=== PATIENT | female | born 1950 | race Caucasian/White ===

== ENCOUNTER → 2020-07-08 | Day surgery (SDC) | payer MEDICARE, OTHER ==
[~2020-07-08] MED LIST: ARICEPT5 MG PO; ATORVASTATIN CA20 MG PO; AVAPRO150 MG PO; BUSPAR 10MG10 MG PO; CETAPHIL CREAM454 GM TD; CETAPHIL226 GM TP; CIPRO500 MG PO; CLOBETASOL TD; ELIQUIS 5 MG TAB5 MG PO; ELIQUIS5 MG PO; ELOCON45 G1 TP; ESTRACE0.5 MG PO; EXCEDRIN MIGRA1 EACH PO; FEOSOL325 MG PO; HYDROXYZINE HCL25 MG PO; HYGROTON TAB 2525 MG PO; IMITREX100 MG PO; IRBESARTAN150 MG PO; KLONOPIN TAB 00.5 MG PO; KLONOPIN1 MG PO; KLOR-CON M2020 MEQ PO; LEVOTHYROXINE100 MCG PO; LEXAPRO10 MG PO; LIPITOR TAB 2020 MG PO; LOPRESSOR 50 MG50 MG PO; NEURONTIN 300300 MG PO; NEURONTIN300 MG PO; NIFEDIPINE ER30 M1 PO; ONDANSETRON HCL4 MG PO; PERCOCET 7.5-31 EACH PO; PROTONIX 40 MG40 M1 PO; PROTONIX40 MG PO; QUETIAPINE FUMA25 MG PO; RANITIDINE HCL150 MG PO; RANITIDINE PO; SERTRALINE HCL100 MG PO; SINEQUAN CAP 2525 MG PO; SPIRIVA RESPIMAT4 GM INH; SPIRONOLACTONE50 MG PO; SYNTHROID100 MCG PO; TEMOVATE60 GM TP; ULTRAM50 MG PO; VIT D PO; ZANAFLEX4 MG PO; ZOFRAN4 MG PO; ZOFRAN8 MG PO; ZOLOFT100 MG PO
== END | disposition home or self-care (01) ==
LOC: OR 07:10
PROVIDERS: Internal Medicine Gastroenterology
PROC: 0DJ08ZZ Inspection of Upper Intestinal Tract, Via Natural or Artificial Opening Endoscopic (ICD-10-PCS; principal; 2020-07-08 09:15)
DX: K25.7 Chronic gastric ulcer without hemorrhage or perforation (principal); K44.9 Diaphragmatic hernia without obstruction or gangrene; D64.9 Anemia, unspecified; E78.5 Hyperlipidemia, unspecified; I11.0 Hypertensive heart disease with heart failure; I50.9 Heart failure, unspecified; I48.91 Unspecified atrial fibrillation; J44.9 Chronic obstructive pulmonary disease, unspecified; K21.9 Gastro-esophageal reflux disease without esophagitis; M19.90 Unspecified osteoarthritis, unspecified site; G89.29 Other chronic pain; M54.9 Dorsalgia, unspecified; F41.8 Other specified anxiety disorders; E03.9 Hypothyroidism, unspecified; E53.8 Deficiency of other specified B group vitamins; Z79.01 Long term (current) use of anticoagulants; Z79.899 Other long term (current) drug therapy; Z20.828 Contact with and (suspected) exposure to other viral communicable diseases
CPT/HCPCS: J2001; J2704; J7040

== ENCOUNTER → 2020-08-05 | Outpatient (CLI) | payer MEDICARE, OTHER | LOC: LBRF 14:04 | DX: D64.9 Anemia, unspecified (principal) | CPT/HCPCS: 83993 ==

== ENCOUNTER → 2020-09-29 | Outpatient (CLI) | payer MEDICARE, OTHER | LOC: RAD 16:13 | DX: S23.41XA Sprain of ribs, initial encounter (principal); M54.5 Low back pain; X58.XXXA Exposure to other specified factors, initial encounter | CPT/HCPCS: 71046 ==

== ENCOUNTER → 2021-01-01 | Outpatient (CLI) | payer MEDICARE, OTHER | LOC: MRI 12-11 13:00 | DX: R27.0 Ataxia, unspecified (principal); R53.1 Weakness; R29.6 Repeated falls | CPT/HCPCS: 70551 ==

== ENCOUNTER → 2021-01-12 | Outpatient (CLI) | payer MEDICARE, OTHER | LOC: HEART 5 10-29 08:00 | DX: I48.91 Unspecified atrial fibrillation (principal); R00.1 Bradycardia, unspecified; I08.3 Combined rheumatic disorders of mitral, aortic and tricuspid valves; I08.8 Other rheumatic multiple valve diseases | CPT/HCPCS: 78452; 93306; A9502; J2785 ==

== ENCOUNTER → 2021-01-22 | Outpatient (CLI) | payer MEDICARE, OTHER | LOC: MAMO 11-06 11:00 → MRI 11-06 13:00 → MAMO 13:19 | DX: Z12.31 Encounter for screening mammogram for malignant neoplasm of breast (principal) | CPT/HCPCS: 77063; 77067 ==

== ENCOUNTER 2021-04-17 14:41 | Emergency (ER) | payer MEDICARE, OTHER ==
[2021-04-17] MEDS ORDERED: HYDROCODON-ACE1 EAC4 PO (16:47)
== END 2021-04-17 18:20 | disposition home or self-care (01) ==
LOC: ER1 14:41
DX: S27.0XXA Traumatic pneumothorax, initial encounter (principal); S22.42XA Multiple fractures of ribs, left side, initial encounter for closed fracture; I10 Essential (primary) hypertension; W19.XXXA Unspecified fall, initial encounter
CPT/HCPCS: 71101; 72070; 93005; 99285

== ENCOUNTER 2021-04-18 15:36 | Observation (INO) | payer MEDICARE, OTHER ==
[~2021-04-18] VITALS: Ht 167.6 cm; Wt 74.8 kg
[~2021-04-18 15:36] MED LIST changes: +HYDROCODON-ACE1 EAC4 PO
[2021-04-18 16:50] LABS: HEMOGLOBIN 11.6 gm/dl (12.3-15.3); RED BLOOD COUNT 3.62 M/UL (4.00-5.10); WHITE BLOOD COUNT 6.6 K/UL (4.5-11.0)
[2021-04-18 17:33] LABS: BUN/CREATININE RATIO 21 (0-10)
[2021-04-19 07:26] LABS: BUN/CREATININE RATIO 30 (0-10)
== END 2021-04-19 10:34 | disposition home or self-care (01) ==
LOC: ER1 15:36 → MED SURG 4 18:04 → CDU 18:04 → MED SURG 4 20:24
PROVIDERS: Emergency Medicine; Internal Medicine Infectious Disease; ADMIT Internal Medicine
DX: S27.0XXA Traumatic pneumothorax, initial encounter (principal); S22.42XA Multiple fractures of ribs, left side, initial encounter for closed fracture; E87.6 Hypokalemia; G89.4 Chronic pain syndrome; I48.0 Paroxysmal atrial fibrillation; I10 Essential (primary) hypertension; E03.9 Hypothyroidism, unspecified; E78.5 Hyperlipidemia, unspecified; F41.9 Anxiety disorder, unspecified; M19.90 Unspecified osteoarthritis, unspecified site; Z79.01 Long term (current) use of anticoagulants; Z79.899 Other long term (current) drug therapy; W19.XXXA Unspecified fall, initial encounter; Z20.822 Contact with and (suspected) exposure to COVID-19
CPT/HCPCS: 36415; 71045; 71250; 80048; 80053; 85025; 99285; G0378; U0002

== ENCOUNTER → 2021-05-18 | Outpatient (CLI) | payer MEDICARE, OTHER | LOC: RAD 12:41 | DX: J93.9 Pneumothorax, unspecified (principal); J90 Pleural effusion, not elsewhere classified; R91.8 Other nonspecific abnormal finding of lung field | CPT/HCPCS: 71046 ==

== ENCOUNTER 2021-06-01 15:51 | Emergency (ER) | payer MEDICARE, OTHER ==
[2021-06-01] MEDS ORDERED: PERCOCET 5/325 T1 EA PO (18:16)
== END 2021-06-01 19:09 | disposition home or self-care (01) ==
LOC: ER1 15:51
DX: S52.571A Other intraarticular fracture of lower end of right radius, initial encounter for closed fracture (principal); S52.531A Colles' fracture of right radius, initial encounter for closed fracture; I48.91 Unspecified atrial fibrillation; I10 Essential (primary) hypertension; E11.9 Type 2 diabetes mellitus without complications; W19.XXXA Unspecified fall, initial encounter
CPT/HCPCS: 29125; 73060; 73080; 73090; 73110; 73130; 99283

== ENCOUNTER 2021-08-21 17:46 | Emergency (ER) | payer MEDICARE, OTHER ==
[~2021-08-21] VITALS: Ht 167.6 cm; Wt 68.0 kg
[~2021-08-21 17:46] MED LIST changes: -ELIQUIS5 MG PO; -LEVOTHYROXINE100 MCG PO; -NEURONTIN300 MG PO; +PERCOCET 5/325 T1 EA PO; -SERTRALINE HCL100 MG PO; -SPIRONOLACTONE50 MG PO
[2021-08-21 19:08] LABS: BUN/CREATININE RATIO 34 (0-10)
[2021-08-21 20:09] LABS: HEMOGLOBIN 7.1 gm/dl (12.3-15.3); RED BLOOD COUNT 2.31 M/UL (4.00-5.10); WHITE BLOOD COUNT 3.9 K/UL (4.5-11.0)
[2021-08-22] MEDS ORDERED: SPIRONOLACTONE50 MG PO (08:13)
[2021-08-22] MEDS ORDERED: NEURONTIN300 MG PO (08:14)
[2021-08-22] MEDS ORDERED: ELIQUIS5 MG PO (09:26)
[2021-08-22] MEDS ORDERED: SERTRALINE HCL100 MG PO (09:27)
[2021-08-22] MEDS ORDERED: LEVOTHYROXINE100 MCG PO (09:33)
[2021-08-22 09:55] LABS: HEMOGLOBIN 11.3 gm/dl (12.3-15.3)
[2021-08-22] MEDS ORDERED: ONDANSETRON HCL4 MG PO (13:29)
[2021-08-22] MEDS ORDERED: OXYCODON-ACETA1 EAC1 PO (13:31)
[2021-08-22] MEDS ORDERED: TIZANIDINE HCL2 MG PO (13:32)
[2021-08-22] MEDS ORDERED: TRAMADOL HCL50 MG PO (13:33)
[2021-08-22] MEDS ORDERED: ARTHRITIS PAIN50 GM TP (13:34)
[2021-08-22] MEDS ORDERED: QUETIAPINE FUM100 MG PO (13:35)
[2021-08-22] MEDS ORDERED: QUETIAPINE FUMA50 MG PO (13:36)
[2021-08-22] MEDS ORDERED: EFFEXOR 37.537.5 MG PO (13:38)
[2021-08-22] MEDS ORDERED: BACLOFEN10 MG PO (13:39)
[2021-08-22] MEDS ORDERED: PROTONIX 40 MG40 M1 PO (13:40)
[2021-08-22] MEDS ORDERED: ISOSORBIDE MONO30 MG PO (13:40)
[2021-08-22] MEDS ORDERED: RALOXIFENE HCL60 MG PO (13:41)
[2021-08-22] MEDS ORDERED: CRESTOR 10 MG T10 MG PO (13:43)
[2021-08-22] MEDS ORDERED: DOCUSATE SODIU250 MG PO (13:45)
[2021-08-22] MEDS ORDERED: DONEPEZIL HCL5 MG PO (13:46)
[2021-08-22] MEDS ORDERED: B-122500 MCG SL (13:47)
[2021-08-22] MEDS ORDERED: VITAMIN D250 MCG PO (13:50)
[2021-08-22] MEDS ORDERED: EXCEDRIN MIGRA1 EAC1 PO (13:51)
[2021-08-23 04:26] LABS: HEMOGLOBIN 11.3 gm/dl (12.3-15.3)
[2021-08-23 04:29] LABS: RED BLOOD COUNT 3.73 M/UL (4.00-5.10); WHITE BLOOD COUNT 5.6 K/UL (4.5-11.0)
[2021-08-23 04:49] LABS: BUN/CREATININE RATIO 20 (0-10)
== END 2021-08-23 12:58 | disposition home or self-care (01) ==
LOC: ER1 17:46
PROVIDERS: Emergency Medicine; Internal Medicine Infectious Disease; Student in an Organized Health Care Education/Training Program
DX: G93.40 Encephalopathy, unspecified (principal); R57.1 Hypovolemic shock; K92.2 Gastrointestinal hemorrhage, unspecified; D64.9 Anemia, unspecified; I48.91 Unspecified atrial fibrillation; I10 Essential (primary) hypertension; E78.5 Hyperlipidemia, unspecified; E03.9 Hypothyroidism, unspecified; Z88.2 Allergy status to sulfonamides; Z79.01 Long term (current) use of anticoagulants; Z79.899 Other long term (current) drug therapy; R29.718 NIHSS score 18; Z20.822 Contact with and (suspected) exposure to COVID-19
CPT/HCPCS: ECHO; 36600; 70450; 70496; 70498; 71045; 80053; 80307; 81001; 82140; 82550; 82553; 82803; 83605; 83735; 83874; 83880; 84484; 85014; 85018; 85025; 85610; 86850; 86900; 86901; 86920; 87040; 87086; 93005; 93306; 96374; 96376; 99285; C9113; G0480; J7030; J7050; P9016; U0002

== ENCOUNTER → 2021-11-30 | Outpatient (CLI) | payer MEDICARE, OTHER ==
[~2021-11-30] MED LIST changes: +ARTHRITIS PAIN50 GM TP; +B-122500 MCG SL; +BACLOFEN10 MG PO; +CRESTOR 10 MG T10 MG PO; +DOCUSATE SODIU250 MG PO; +DONEPEZIL HCL5 MG PO; +EFFEXOR 37.537.5 MG PO; +ELIQUIS5 MG PO; +EXCEDRIN MIGRA1 EAC1 PO; +ISOSORBIDE MONO30 MG PO; +LEVOTHYROXINE100 MCG PO; +NEURONTIN300 MG PO; +OXYCODON-ACETA1 EAC1 PO; +QUETIAPINE FUM100 MG PO; +QUETIAPINE FUMA50 MG PO; +RALOXIFENE HCL60 MG PO; +SERTRALINE HCL100 MG PO; +SPIRONOLACTONE50 MG PO; +TIZANIDINE HCL2 MG PO; +TRAMADOL HCL50 MG PO; +VITAMIN D250 MCG PO
== END ==
LOC: CT 11-12 15:00
DX: M25.552 Pain in left hip (principal); T14.8XXA Other injury of unspecified body region, initial encounter; S09.93XA Unspecified injury of face, initial encounter; S02.2XXA Fracture of nasal bones, initial encounter for closed fracture; Z91.81 History of falling
CPT/HCPCS: 70486; 73502

== ENCOUNTER → 2021-12-28 | Outpatient (CLI) | payer MEDICARE, OTHER | LOC: KOH-I 13:54 | DX: M51.16 Intervertebral disc disorders with radiculopathy, lumbar region (principal); M41.86 Other forms of scoliosis, lumbar region; M48.061 Spinal stenosis, lumbar region without neurogenic claudication; R29.6 Repeated falls; R32 Unspecified urinary incontinence; R29.898 Other symptoms and signs involving the musculoskeletal system; M48.07 Spinal stenosis, lumbosacral region; Z91.81 History of falling | CPT/HCPCS: 72146; 72148 ==